=== PATIENT | female | born 1990 | race Caucasian/White ===

== ENCOUNTER 2018-12-13 04:59 | Emergency (ER) | payer OTHER ==
[2018-12-13 06:02] LABS: ADD UMIC YES; UR ASCORBIC ACID NEGATIVE (NEGATIVE); UR BACTERIA FEW /HPF (NONE SEEN); UR BILIRUBIN (Dip) NEGATIVE (NEGATIVE); UR BLOOD (Dip) NEGATIVE (NEGATIVE); UR CLARITY CLOUDY (CLEAR); UR COLOR YELLOW (YELLOW); UR GLUCOSE (Dip) NEGATIVE (NEGATIVE); UR KETONES (Dip) NEGATIVE (NEGATIVE); UR LEUKOCYTE ESTERASE (Dip) 3+ Leu/ul (NEGATIVE); UR MUCUS FEW /HPF (NONE SEEN); UR NITRITE (Dip) NEGATIVE (NEGATIVE); UR RBC 12 /HPF (0-5); UR SPECIFIC GRAVITY (Dip) 1.027 (1.003-1.030); UR SQUAMOUS EPITHELIAL CELL MANY /HPF (FEW); UR TOTAL PROTEIN (Dip) NEGATIVE (NEGATIVE); UR UROBILINOGEN (Dip) 1+ mg/dL (NEGATIVE); UR WBC > 182 /HPF (0-5)
[2018-12-13] MEDS: AZITHROMYCIN 500 MG TAB PO (06:37)
[2018-12-13] MEDS: LIDOCAINE 1% (MPF) 5 ML VIAL INJ (06:38)
[2018-12-13] MEDS: CEFTRIAXONE 250 MG INJ IM (06:38)
== END 2018-12-13 07:08 | disposition home or self-care (01) ==
LOC: FTE 04:59
DX: N30.00 Acute cystitis without hematuria (principal); A59.00 Urogenital trichomoniasis, unspecified; N76.0 Acute vaginitis; J45.909 Unspecified asthma, uncomplicated; F17.210 Nicotine dependence, cigarettes, uncomplicated
CPT/HCPCS: 81001; 81025; 87210; 87591; 96372; 99284-25